=== PATIENT | male | born 1955 | race Two or more races ===

== ENCOUNTER 2022-02-17 16:17 | Inpatient (IN) | payer MEDICARE, OTHER ==
[~2022-02-17] VITALS: Ht 172.7 cm; Wt 92.5 kg
[2022-02-17] MEDS ORDERED: ACET-868 PO (16:33)
[2022-02-17] MEDS ORDERED: AMLO-212 PO (16:33)
[2022-02-17] MEDS ORDERED: MINE7OIN RIGHTEYE (16:33)
[2022-02-17] MEDS ORDERED: FURO-145 PO (16:33)
[2022-02-17] MEDS ORDERED: NA P133E RC (16:33)
[2022-02-17] MEDS ORDERED: BISA10SU11 RC (16:33)
[2022-02-17] MEDS ORDERED: MAGN400O6 PO (16:33)
[2022-02-17] MEDS ORDERED: CHOL100043 PO (16:33)
[2022-02-17] MEDS ORDERED: ATOR40TA PO (16:33)
[2022-02-17] MEDS ORDERED: ASPI-1169 PO (16:33)
[2022-02-17] MEDS ORDERED: OXCA150T5 PO (16:33)
[2022-02-17] MEDS ORDERED: SPIR25TA PO (16:33)
[2022-02-17] MEDS ORDERED: BENA20TA9 PO (16:33)
[2022-02-17] MEDS ORDERED: POLY15DR40 EACHEYE (16:33)
--- NOTE | 2022-02-17 16:49 | NUR ---
TECH AT BEDSIDE FOR EKG
--- NOTE | 2022-02-17 16:53 | NUR ---
PHLEB AT BEDSIDE FOR BLOOD DRAW
--- NOTE | 2022-02-17 16:58 | NUR ---
COVID SWAB COLLECTED AND SENT TO LAB
[2022-02-17 17:09] LABS: BASOPHILS % (AUTO) 0.6 % (0.0-2.0); EOSINOPHILS % (AUTO) 4.8 % (0.0-6.0); HEMATOCRIT 41 % (39-51); HEMOGLOBIN 13.8 g/dL (13.5-17.5); LYMPHOCYTES # (AUTO) 1.7 K/uL (0.8-4.8); LYMPHOCYTES % (AUTO) 23.7 % (20.0-44.0); MEAN CORPUSCULAR HGB CONC 34 g/dl (31.0-36.0); MEAN CORPUSCULAR VOLUME 92 fL (80-96); MONOCYTES # (AUTO) 0.7 K/uL (0.1-1.30); MONOCYTES % (AUTO) 9.7 % (2.0-12.0); NEUTROPHILS # (AUTO) 4.4 K/uL (1.8-8.9); NEUTROPHILS % (AUTO) 61.2 % (43.0-81.0); PLATELET COUNT (AUTO) 289 K/uL (150-450); WHITE BLOOD COUNT (AUTO) 7.2 K/uL (4.3-11.0)
--- NOTE | 2022-02-17 17:14 | NUR ---
URINE SAMPLE COLLECTED AND SENT TO LAB
[2022-02-17 17:24] LABS: CARBON DIOXIDE 29 mmol/L (21-32); CHLORIDE 102 mmol/L (98-107); CREATININE 1.3 mg/dL (0.6-1.3); GLUCOSE 117 mg/dL (74-106); POTASSIUM 3.8 mmol/L (3.5-5.1); SODIUM SERUM 136 mmol/L (136-145); UREA NITROGEN, BLOOD 19 mg/dL (7-18)
[2022-02-17 17:30] LABS: ALANINE AMINOTRANSFERASE 35 U/L (12-78); ALBUMIN 3.6 g/dL (3.4-5.0); ALCOHOL, BLOOD < 3 mg/dL (0-0); ALKALINE PHOSPHATASE 120 U/L (46-116); ASPARTATE AMINOTRANSFERASE 23 U/L (15-37); BILIRUBIN,DIRECT 0.1 mg/dL (0.0-0.2); BILIRUBIN,TOTAL 0.3 mg/dL (0.2-1.0); TOTAL PROTEIN, SERUM 7.6 g/dL (6.4-8.2)
[2022-02-17 17:36] LABS: ACETAMINOPHEN 0 ug/ml (10-30)
[2022-02-17 19:09] LABS: BILIRUBIN,URINE NEGATIVE (NEGATIVE); COLOR,URINE YELLOW (YELLOW); LEUKOCYTE ESTERASE ,URINE NEGATIVE (NEGATIVE); NITRITE, URINE NEGATIVE (NEGATIVE); PH,URINE 6.5 (5.0-8.0); PROTEIN,URINE NEGATIVE (NEGATIVE); UGLUCOSE NEGATIVE (NEGATIVE); UROBILINOGEN,URINE 0.2 EU/dL (0.2)
--- NOTE | 2022-02-17 19:37 | NUR ---
CALLED DANELLE EMERY A MSG TO CALL BACK.
--- NOTE | 2022-02-17 21:52 | NUR ---
BED 212-B
--- NOTE | 2022-02-17 22:47 | NUR ---
GAVE REPORT TO ASIM PARKER FOR KAUSHIK
[2022-02-17 23:10] VITALS: BP 154/92
--- NOTE | 2022-02-17 23:10 | NUR ---
RN NOTE ADMITTED A 66-Y/O, MALE, FROM [facility], INITIALLY PT CAME FROM [facility]. ADMITTED ON A 5150 HOLD FOR GD. PER HOLD, PATIENT ADMITTED DUE TO CONFUSION AND INCREASED PARANOIA. PT APPEARED CONFUSED, HE KEPT REPEATING HE WAS HERE TO BE EVALUATED AND DOES NOT KNOW WHY HE SHOULD STAY. UPON FACE TO FACE EVALUATION, PATIENT IS ALERT AND ORIENTED X1-2, ANXIOUS, CONFUSED, BLUNTED AFFECT, DISHEVELED AND SLURRED SPEECH. SKIN ASSESSMENT DONE. PT. UNABLE TO SIGN ADMISSION PAPERWORK DUE TO CONFUSION. ALL BELONGINGS WERE SCREENED FOR CONTRABAND. PATIENT'S RIGHTS WERE DISCUSSED AND BOOKLET WAS GIVEN. CONTACTED DR. BOBBY AND HOSPITALIST EDEL LUX AND INFORMED THEM OF THE ADMISSION. BED IN LOW AND LOCKED POSITION. SAFETY PRECAUTIONS MAINTAINED. WILL CONTINUE TO MONITOR Q15 MINS FOR MOOD, SAFETY AND BEHAVIOR.
[2022-02-18] MEDS ORDERED: ACETAMINOPHEN 325 MG TABLET PO PRN ×2
[2022-02-18] MEDS ORDERED: BISACODYL SUPP (10 MG) 10 MG/SUPP.RECT SUPP.RECT RC PRN
[2022-02-18] MEDS ORDERED: MAG HYDROX/AL HYDROX/SIMETH 30 ML UDC PO PRN
[2022-02-18] MEDS ORDERED: NA PHOS,M-B/NA PHOS,DI-BA 1 EA ENEMA RC PRN
[2022-02-18] MEDS ORDERED: POLYVINYL ALCOHOL 15 ML BOTTLE EACHEYE PRN
[2022-02-18] MEDS ORDERED: LORAZEPAM 0.5 MG TABLET PO PRN
[2022-02-18] MEDS ORDERED: ZOLPIDEM TARTRATE 5 MG TABLET PO PRN
[2022-02-18] MEDS ORDERED: BLOOD SUGAR DIAGNOSTIC 1 EACH STRIP IN ONE
[2022-02-18] MEDS ORDERED: MAGNESIUM HYDROXIDE 30 ML UDC PO PRN
--- NOTE | 2022-02-18 00:15 | NUR ---
RN NOTE EPIC ON-CALL POKE IN JOSE J NOTIFIED OF PATIENT'S RIGHT EYE REDNESS. PT DENIES ANY PAIN/DISCOMFORT, NO DISCHARGES NOTED WITH NO NEW ORDER AT THIS TIME. WILL ENDORSE TO AM SHIFT.
[2022-02-18] MEDS: ATORVASTATIN 40 MG TABLET PO SCH ×2 (00:46→22:11)
[2022-02-18 07:13] LABS: ALBUMIN 3.5 g/dL (3.4-5.0); BILIRUBIN,TOTAL 0.4 mg/dL (0.2-1.0); CREATININE 1.1 mg/dL (0.6-1.3); POTASSIUM 4.4 mmol/L (3.5-5.1); TOTAL PROTEIN, SERUM 7.7 g/dL (6.4-8.2)
[2022-02-18 07:23] LABS: CHOLESTEROL 107 mg/dL (<200); HDL CHOLESTEROL 44 mg/dL (40-60); LDL 49 mg/dL (0-99); TRIGLYCERIDES 126 mg/dL (30-150)
[2022-02-18 08:00] VITALS: BP 157/78
[2022-02-18] MEDS: OXCARBAZEPINE 150 MG TABLET PO SCH (08:41)
[2022-02-18] MEDS: ASPIRIN 81 MG TAB.CHEW PO SCH (08:41)
[2022-02-18] MEDS: SPIRONOLACTONE 25 MG TABLET PO SCH ×2 (08:41→17:33)
[2022-02-18] MEDS: CHOLECALCIFEROL (VITAMIN D 3) 400 UNIT TABLET PO SCH (08:41)
[2022-02-18] MEDS: FUROSEMIDE 20 MG TABLET PO SCH (08:41)
[2022-02-18] MEDS: AMLODIPINE BESYLATE 5 MG TABLET PO SCH (08:42)
--- NOTE | 2022-02-18 09:26 | NUR ---
LAURIE Initial Discharge Plan: Patient has been residing at [facility] located at [address] [place] [address]; ([phone]). [facility] who stated that pt is welcomed back. LAURIE will coordinate with the pt, family, and MD to help find appropriate placement.
--- NOTE | 2022-02-18 09:27 | NUR ---
LAURIE Clinical Note: Pt placed on a 5150 hold for GD. Pt was confused and paranoid at the facility. Patient has been residing at [facility] located at [address] [place] [address]; ([phone]). LAURIE contacted Helda admin from [facility] who stated that pt is welcomed back.
--- NOTE | 2022-02-18 09:29 | NUR ---
Treatment Plan: Pt appeared suspicious and refused to sign.
--- NOTE | 2022-02-18 09:44 | NUR ---
LAURIE Family Contact: LAURIE attempted to contact pt's sister Marlene ([phone]) to discuss treatment/discharge plan. She stated to this scientific technical writer that she is sick and won't be able to visit pt. She did want pt back to [facility] when pt is ready for dc. Addendum: 02/24/22 at 1201 by LAURIE ARROYO Correction name is Kathy
[2022-02-18] MEDS: ESCITALOPRAM OXALATE (10 MG) 10 MG TABLET PO SCH (11:00)
[2022-02-18 16:00] VITALS: BP 158/83
--- NOTE | 2022-02-18 18:45 | NUR ---
ms rn patient was stable the whole shift, patient was cooperative and compliant, denies pain the whole shift,all needs attended.
[2022-02-18 20:00] VITALS: BP 135/78
--- NOTE | 2022-02-18 20:15 | NUR ---
RN NOTES: PATIENT RESTING IN ROOM, NO S/SX OF ACUTE DISTRESS NOTED. PATIENT GUARDED, EASILY AGITATED, DISORGANIZED,GIVING INAPPROPRIATE ANSWER TO QUESTIONS, NEEDS FREQUENT REDIRECTION.ENCOURAGE TO VERBALIZED ANY FEELING OR CONCERN, SAFETY MEASURES IN PLACE. WILL CONTINUE TO MONITOR Q15MIN ROUNDS FOR SAFETY AND BEHAVIOR.
[2022-02-18] MEDS: QUETIAPINE FUMARATE 25 MG TABLET PO SCH (22:11)
[2022-02-18] MEDS: BENAZEPRIL HCL 20 MG TABLET PO SCH (22:12)
[2022-02-19 08:00] VITALS: BP 156/91
[2022-02-19] MEDS: CHOLECALCIFEROL (VITAMIN D 3) 400 UNIT TABLET PO SCH (09:01)
[2022-02-19] MEDS: FUROSEMIDE 20 MG TABLET PO SCH (09:01)
[2022-02-19] MEDS: SPIRONOLACTONE 25 MG TABLET PO SCH ×2 (09:01→16:06)
[2022-02-19] MEDS: OXCARBAZEPINE 150 MG TABLET PO SCH (09:01)
[2022-02-19] MEDS: ESCITALOPRAM OXALATE (10 MG) 10 MG TABLET PO SCH (09:01)
[2022-02-19] MEDS: ASPIRIN 81 MG TAB.CHEW PO SCH (09:01)
[2022-02-19] MEDS: AMLODIPINE BESYLATE 5 MG TABLET PO SCH (09:02)
[2022-02-19 16:00] VITALS: BP 125/82
--- NOTE | 2022-02-19 19:30 | NUR ---
GPS RN NOTE, RECEIVED PATIENT AWAKE AND IN BED, NO S/S OR COMPLAINTS OF PAIN AT THIS TIME. PATIENT IS DISPLAYING NO S/S OF APPARENT DISTRESS AT THIS TIME. PATIENT BREATHING IS UNLABORED WITH EQUAL RISE AND FALL OF THE CHEST. PATIENT IS ALERT AND ORIENTED X 1-2 ON ROOM AIR WITH A SPO2 97%. PATIENT IS COMPLIANT WITH MEDICATIONS, CALM, DISORGANIZED, POLITE, AND COOPERATIVE. PATIENT DENIES SUICIDAL AND HOMICIDAL IDEATIONS AT THIS TIME. PATIENT ASSISTED WITH TURNING AND REPOSITIONING Q2HR AND PRN FOR COMFORT AND CIRCULATION. PATIENT HAS NO NEEDS AT THIS TIME. PATIENT EDUCATED ON THE USE OF THE CALL CONROY. PATIENT BED SIDE RAILS UP X 2 FOR SAFETY. PATIENT BED IS LOCKED, LOW, WITH BED ALARM ON. WILL CONTINUE TO MONITOR THIS PATIENT Q15 MINUTES WITH THE HELP OF STAFF TO MAINTAIN SAFETY.
[2022-02-19] MEDS: ATORVASTATIN 40 MG TABLET PO SCH (21:37)
[2022-02-19] MEDS: QUETIAPINE FUMARATE 25 MG TABLET PO SCH (21:37)
[2022-02-19] MEDS: BENAZEPRIL HCL 20 MG TABLET PO SCH (21:38)
--- NOTE | 2022-02-20 07:52 | NUR ---
Dr. Morin cancelled the EEG order.
[2022-02-20 08:00] VITALS: BP 137/78
[2022-02-20] MEDS: OXCARBAZEPINE 150 MG TABLET PO SCH (08:04)
[2022-02-20] MEDS: FUROSEMIDE 20 MG TABLET PO SCH (08:04)
[2022-02-20] MEDS: SPIRONOLACTONE 25 MG TABLET PO SCH ×2 (08:04→16:37)
[2022-02-20] MEDS: ASPIRIN 81 MG TAB.CHEW PO SCH (08:04)
[2022-02-20] MEDS: CHOLECALCIFEROL (VITAMIN D 3) 400 UNIT TABLET PO SCH (08:04)
[2022-02-20] MEDS: ESCITALOPRAM OXALATE (10 MG) 10 MG TABLET PO SCH (08:04)
[2022-02-20] MEDS: AMLODIPINE BESYLATE 5 MG TABLET PO SCH (08:05)
[2022-02-20 16:00] VITALS: BP 136/70
--- NOTE | 2022-02-20 19:30 | NUR ---
GPS RN NOTE, RECEIVED PATIENT AWAKE AND IN BED, NO S/S OR COMPLAINTS OF PAIN AT THIS TIME. PATIENT IS DISPLAYING NO S/S OF APPARENT DISTRESS AT THIS TIME. PATIENT BREATHING IS UNLABORED WITH EQUAL RISE AND FALL OF THE CHEST. PATIENT IS ALERT AND ORIENTED X 1-2 ON ROOM AIR WITH A SPO2 93%. PATIENT IS COMPLIANT WITH MEDICATIONS, CALM, DISORGANIZED, POLITE, AND COOPERATIVE. PATIENT DENIES SUICIDAL AND HOMICIDAL IDEATIONS AT THIS TIME. PATIENT ASSISTED WITH TURNING AND REPOSITIONING Q2HR AND PRN FOR COMFORT AND CIRCULATION. PATIENT HAS NO NEEDS AT THIS TIME. PATIENT EDUCATED ON THE USE OF THE CALL CONROY. PATIENT BED SIDE RAILS UP X 2 FOR SAFETY. PATIENT BED IS LOCKED, LOW, WITH BED ALARM ON. WILL CONTINUE TO MONITOR THIS PATIENT Q15 MINUTES WITH THE HELP OF STAFF TO MAINTAIN SAFETY.
[2022-02-20 20:00] VITALS: BP 127/76
[2022-02-20] MEDS: MUPIROCIN OINT 2% 22 GM TUBE NS SCH (21:18)
[2022-02-20] MEDS: ATORVASTATIN 40 MG TABLET PO SCH (21:19)
[2022-02-20] MEDS: QUETIAPINE FUMARATE 25 MG TABLET PO SCH (21:19)
[2022-02-20] MEDS: BENAZEPRIL HCL 20 MG TABLET PO SCH (21:20)
[2022-02-21 08:00] VITALS: BP 117/70
[2022-02-21] MEDS: ASPIRIN 81 MG TAB.CHEW PO SCH (08:40)
[2022-02-21] MEDS: CHOLECALCIFEROL (VITAMIN D 3) 400 UNIT TABLET PO SCH (08:40)
[2022-02-21] MEDS: ESCITALOPRAM OXALATE (10 MG) 10 MG TABLET PO SCH (08:40)
[2022-02-21] MEDS: SPIRONOLACTONE 25 MG TABLET PO SCH ×2 (08:40→17:39)
[2022-02-21] MEDS: OXCARBAZEPINE 150 MG TABLET PO SCH (08:41)
[2022-02-21] MEDS: AMLODIPINE BESYLATE 5 MG TABLET PO SCH (08:41)
[2022-02-21] MEDS: FUROSEMIDE 20 MG TABLET PO SCH (08:41)
[2022-02-21] MEDS: MUPIROCIN OINT 2% 22 GM TUBE NS SCH ×2 (08:41→21:20)
[2022-02-21 16:00] VITALS: BP 125/70
[2022-02-21 20:13] VITALS: BP 118/76
[2022-02-21] MEDS: QUETIAPINE FUMARATE 25 MG TABLET PO SCH (21:21)
[2022-02-21] MEDS: BENAZEPRIL HCL 20 MG TABLET PO SCH (21:21)
[2022-02-21] MEDS: ATORVASTATIN 40 MG TABLET PO SCH (21:22)
[2022-02-22 08:00] VITALS: BP 115/71
[2022-02-22] MEDS: CHOLECALCIFEROL (VITAMIN D 3) 400 UNIT TABLET PO SCH (09:24)
[2022-02-22] MEDS: ASPIRIN 81 MG TAB.CHEW PO SCH (09:26)
[2022-02-22] MEDS: OXCARBAZEPINE 150 MG TABLET PO SCH (09:26)
[2022-02-22] MEDS: AMLODIPINE BESYLATE 5 MG TABLET PO SCH (09:26)
[2022-02-22] MEDS: SPIRONOLACTONE 25 MG TABLET PO SCH ×2 (09:26→17:29)
[2022-02-22] MEDS: ESCITALOPRAM OXALATE (10 MG) 10 MG TABLET PO SCH (09:26)
[2022-02-22] MEDS: FUROSEMIDE 20 MG TABLET PO SCH (09:26)
[2022-02-22] MEDS: MUPIROCIN OINT 2% 22 GM TUBE NS SCH ×2 (09:27→21:11)
[2022-02-22 16:00] VITALS: BP 125/78
[2022-02-22 19:37] VITALS: BP 115/73
[2022-02-22] MEDS: ATORVASTATIN 40 MG TABLET PO SCH (21:10)
[2022-02-22] MEDS: BENAZEPRIL HCL 20 MG TABLET PO SCH (21:10)
[2022-02-22] MEDS: QUETIAPINE FUMARATE 25 MG TABLET PO SCH (21:11)
[2022-02-23 08:00] VITALS: BP 137/70
[2022-02-23] MEDS: ASPIRIN 81 MG TAB.CHEW PO SCH (08:46)
[2022-02-23] MEDS: SPIRONOLACTONE 25 MG TABLET PO SCH ×2 (08:46→17:19)
[2022-02-23] MEDS: AMLODIPINE BESYLATE 5 MG TABLET PO SCH (08:47)
[2022-02-23] MEDS: OXCARBAZEPINE 150 MG TABLET PO SCH (08:47)
[2022-02-23] MEDS: FUROSEMIDE 20 MG TABLET PO SCH (08:47)
[2022-02-23] MEDS: CHOLECALCIFEROL (VITAMIN D 3) 400 UNIT TABLET PO SCH (08:47)
[2022-02-23] MEDS: ESCITALOPRAM OXALATE (10 MG) 10 MG TABLET PO SCH (08:48)
[2022-02-23] MEDS: MUPIROCIN OINT 2% 22 GM TUBE NS SCH ×2 (08:50→21:31)
[2022-02-23 16:00] VITALS: BP 136/77
[2022-02-23 19:26] VITALS: BP 131/71
[2022-02-23] MEDS: QUETIAPINE FUMARATE 25 MG TABLET PO SCH (21:29)
[2022-02-23] MEDS: ATORVASTATIN 40 MG TABLET PO SCH (21:29)
[2022-02-23] MEDS: BENAZEPRIL HCL 20 MG TABLET PO SCH (21:29)
[2022-02-24 08:00] VITALS: BP 145/74
[2022-02-24] MEDS: SPIRONOLACTONE 25 MG TABLET PO SCH ×2 (08:48→17:36)
[2022-02-24] MEDS: ESCITALOPRAM OXALATE (10 MG) 10 MG TABLET PO SCH (08:48)
[2022-02-24] MEDS: ASPIRIN 81 MG TAB.CHEW PO SCH (08:48)
[2022-02-24] MEDS: AMLODIPINE BESYLATE 5 MG TABLET PO SCH (08:49)
[2022-02-24] MEDS: OXCARBAZEPINE 150 MG TABLET PO SCH (08:49)
[2022-02-24] MEDS: CHOLECALCIFEROL (VITAMIN D 3) 400 UNIT TABLET PO SCH (08:49)
[2022-02-24] MEDS: MUPIROCIN OINT 2% 22 GM TUBE NS SCH ×2 (08:49→21:23)
[2022-02-24] MEDS: FUROSEMIDE 20 MG TABLET PO SCH (08:50)
--- NOTE | 2022-02-24 12:01 | NUR ---
Court Notification: LAURIE attempted to contact pt's ist Addendum: 02/24/22 at 1202 by LAURIE ARROYO LAURIE attempted to contact pt's sister Marlene ([phone]) and left a voicemail of [phone] hearing.
--- NOTE | 2022-02-24 12:02 | NUR ---
Court Hearing: Patient's court hearing for [id number] was today and it was upheld for GD.
--- NOTE | 2022-02-24 12:07 | NUR ---
LAURIE Family Contact: LAURIE contacted pt's sister Marlene ([phone]) and notified of pt returning back to [facility] 02/25. She was agreeable of this.
[2022-02-24 16:24] VITALS: BP 124/71
[2022-02-24 20:06] VITALS: BP 132/76
[2022-02-24] MEDS: QUETIAPINE FUMARATE 25 MG TABLET PO SCH (21:20)
[2022-02-24] MEDS: BENAZEPRIL HCL 20 MG TABLET PO SCH (21:22)
[2022-02-24] MEDS: ATORVASTATIN 40 MG TABLET PO SCH (21:22)
[2022-02-25 08:00] VITALS: BP 114/62
--- NOTE | 2022-02-25 08:05 | NUR ---
LAURIE Discharge Note: Patient will return back to [facility] located at [address] [place] [address]; ([phone]). Please arrange transportation at 1PM. LAURIE contacted [facility] and spoke with [facility] who stated pt is welcomed back. Pts sister Marlene ([phone]) is aware and agreeable of discharge. Pt has no other supportive contact. Pt is alert and oriented x3. Pt denies suicidal or homicidal ideation. Pt denies visual/auditory hallucinations. Patient will follow-up at the facility with Dr. Luz (psychiatrist) [id number] [place] [id number]; ([phone]). Patient will follow up with (Psychiatrist) Dr. Valdez at [address] [place] [address] ([phone]). Patient presents with euthymic mood and congruent affect.
[2022-02-25 09:28] VITALS: BP 114/62
[2022-02-25] MEDS: ASPIRIN 81 MG TAB.CHEW PO SCH (09:28)
[2022-02-25] MEDS: FUROSEMIDE 20 MG TABLET PO SCH (09:28)
[2022-02-25] MEDS: ESCITALOPRAM OXALATE (10 MG) 10 MG TABLET PO SCH (09:28)
[2022-02-25] MEDS: SPIRONOLACTONE 25 MG TABLET PO SCH (09:28)
[2022-02-25] MEDS: AMLODIPINE BESYLATE 5 MG TABLET PO SCH (09:28)
[2022-02-25] MEDS: MUPIROCIN OINT 2% 22 GM TUBE NS SCH (09:28)
[2022-02-25] MEDS: CHOLECALCIFEROL (VITAMIN D 3) 400 UNIT TABLET PO SCH (09:29)
[2022-02-25] MEDS: OXCARBAZEPINE 150 MG TABLET PO SCH (09:29)
--- NOTE | 2022-02-25 10:00 | NUR ---
Dr. Luz gave an order to D/C hold and D/C to [facility] and to follow up with psych and medical doctors. Psychiatrist reconciled meds to continue in the facility. Lissa Rascon NP made aware of the discharge and reconciled meds to continue in the facility.
--- NOTE | 2022-02-25 11:14 | NUR ---
Report given to Prince, right of way supervisor over the facility. Dr. Wright made aware of the discharge and CT was not done and said that's fine.
--- NOTE | 2022-02-25 13:31 | NUR ---
DISCHARGE NOTE Received order from Dr. Luz for discharge. Patient is A/o x 2, able to make needs known. On room air, breathing evenly and unlabored. No SOB or s/s of distress noted. Discharge instructions given to patient, discharge papers signed. Patient denies any SI/HI, also denies any pain or discomfort at this time. VS taken as follows: BP 150/77, HR 78, RR 19, Temp 97.6, SPO2 95% on RA. Patient left in stable condition with 2 merchandiser seasonal via ambulance.
== END 2022-02-25 13:30 | DRG 885 ==
LOC: ER 16:27 → GPS 22:36
PROVIDERS: ADMIT Psychiatry & Neurology Psychiatry; ATTEND Registered Nurse
DX: F33.3 Major depressive disorder, recurrent, severe with psychotic symptoms (principal); I69.351 Hemiplegia and hemiparesis following cerebral infarction affecting right dominant side; F03.92 Unspecified dementia, unspecified severity, with psychotic disturbance; F41.9 Anxiety disorder, unspecified; I10 Essential (primary) hypertension; E78.5 Hyperlipidemia, unspecified; Z88.1 Allergy status to other antibiotic agents; Z88.2 Allergy status to sulfonamides; Z79.82 Long term (current) use of aspirin; Z79.899 Other long term (current) drug therapy; Z73.6 Limitation of activities due to disability; E86.0 Dehydration; R79.89 Other specified abnormal findings of blood chemistry; R73.03 Prediabetes; Z99.3 Dependence on wheelchair; G40.909 Epilepsy, unspecified, not intractable, without status epilepticus
CPT/HCPCS: 36415; 80048-TC; 80053-TC; 80061-TC; 80076-TC; 82962-TC; 84443-TC; 85025-TC; 87081-TC; 97110-TC; 97530-TC; C9803; G0480

== ENCOUNTER 2022-04-28 15:45 | Inpatient (IN) | payer MEDICARE, OTHER ==
[~2022-04-28] VITALS: Ht 182.9 cm; Wt 90.7 kg
[~2022-04-28 15:45] MED LIST: ACET-868 PO; AMLO-212 PO; ASPI-1169 PO; ATOR40TA PO; BENA20TA9 PO; BISA10SU11 RC; CHOL100043 PO; FURO-145 PO; MAGN400O6 PO; MINE7OIN RIGHTEYE; NA P133E RC; OXCA150T5 PO; POLY15DR40 EACHEYE; SPIR25TA PO
--- NOTE | 2022-04-28 16:38 | NUR ---
dr jacinto at bedside for eval.
[2022-04-28 17:02] LABS: BASOPHILS % (AUTO) 0.4 % (0.0-2.0); EOSINOPHILS % (AUTO) 5.3 % (0.0-6.0); HEMATOCRIT 42 % (39-51); HEMOGLOBIN 13.7 g/dL (13.5-17.5); LYMPHOCYTES # (AUTO) 1.4 K/uL (0.8-4.8); MEAN CORPUSCULAR HGB CONC 33 g/dl (31.0-36.0); MEAN CORPUSCULAR VOLUME 94 fL (80-96); MONOCYTES # (AUTO) 0.7 K/uL (0.1-1.30); MONOCYTES % (AUTO) 9.3 % (2.0-12.0); NEUTROPHILS # (AUTO) 5.2 K/uL (1.8-8.9); PLATELET COUNT (AUTO) 291 K/uL (150-450); RED BLOOD CELL COUNT(AUTO) 4.47 MIL/uL (4.5-6.0); WHITE BLOOD COUNT (AUTO) 7.7 K/uL (4.3-11.0)
[2022-04-28] MEDS ORDERED: SPIR25TA PO (17:27)
[2022-04-28] MEDS ORDERED: QUET50TA PO (17:27)
[2022-04-28 17:48] LABS: ALANINE AMINOTRANSFERASE 26 U/L (12-78); ALBUMIN 3.5 g/dL (3.4-5.0); ALCOHOL, BLOOD < 3 mg/dL (0-0); ALKALINE PHOSPHATASE 107 U/L (46-116); ASPARTATE AMINOTRANSFERASE 21 U/L (15-37); BILIRUBIN,DIRECT 0.1 mg/dL (0.0-0.2); BILIRUBIN,TOTAL 0.3 mg/dL (0.2-1.0); CALCIUM, SERUM 9.1 mg/dL (8.5-10.1); CARBON DIOXIDE 30 mmol/L (21-32); CHLORIDE 103 mmol/L (98-107); CREATININE 1.3 mg/dL (0.6-1.3); GLUCOSE 118 mg/dL (74-106); POTASSIUM 4.3 mmol/L (3.5-5.1); SODIUM SERUM 139 mmol/L (136-145); TOTAL PROTEIN, SERUM 7.3 g/dL (6.4-8.2); UREA NITROGEN, BLOOD 21 mg/dL (7-18)
[2022-04-28 18:07] LABS: BILIRUBIN,URINE NEGATIVE (NEGATIVE); COLOR,URINE YELLOW (YELLOW); LEUKOCYTE ESTERASE ,URINE NEGATIVE (NEGATIVE); NITRITE, URINE NEGATIVE (NEGATIVE); PROTEIN,URINE NEGATIVE (NEGATIVE); UGLUCOSE NEGATIVE (NEGATIVE); UROBILINOGEN,URINE 0.2 EU/dL (0.2)
--- NOTE | 2022-04-28 18:36 | NUR ---
COVID SWAB COLLECTED AND SENT TO LAB
--- NOTE | 2022-04-28 20:37 | NUR ---
RUPERT PAGED LEFT VOICEMAIL
--- NOTE | 2022-04-28 20:44 | NUR ---
CALLED [facility] CRISIS TEAM FOR EVAL
[2022-04-28 20:54] LABS: BACTERIA,URINE None seen /HPF (None Seen); SQUAMOUS EPITHELIAL CELL,UR 0-2 /HPF (None Seen); WBC,URINE 0-2 /HPF (0-3)
--- NOTE | 2022-04-28 23:30 | NUR ---
ALFREDO WISDOMFT CRISIS TEAM AT PT'S BEDSIDE FOR EVAL
--- NOTE | 2022-04-28 23:45 | NUR ---
Stanislav salmeron in [place] - 04/29/22 at 0006 by KIM RIKA CHRISTENSEN CRISIS TEAM AT PT'S BEDSIDE FOR EVAL
[2022-04-29] MEDS ORDERED: MAGNESIUM HYDROXIDE 30 ML UDC PO PRN ×2 (01:00→03:00)
--- NOTE | 2022-04-29 01:33 | NUR ---
REPORT GIVEN TO PAYAL NELSON RN FOR KAUSHIK
--- NOTE | 2022-04-29 02:46 | NUR ---
PT TRANSFERRED NO ACUTE DISTRESS NOTED.
[2022-04-29] MEDS ORDERED: MAG HYDROX/AL HYDROX/SIMETH 30 ML UDC PO PRN (03:00)
[2022-04-29] MEDS ORDERED: ZOLPIDEM TARTRATE 5 MG TABLET PO PRN (03:00)
[2022-04-29] MEDS ORDERED: ACETAMINOPHEN 325 MG TABLET PO PRN (03:00)
[2022-04-29] MEDS ORDERED: LORAZEPAM 0.5 MG TABLET PO PRN (03:00)
[2022-04-29] MEDS ORDERED: BLOOD SUGAR DIAGNOSTIC 1 EACH STRIP IN ONE (03:00)
[2022-04-29] MEDS: POLYVINYL ALCOHOL 15 ML BOTTLE EACHEYE SCH ×5 (05:00→21:15)
--- NOTE | 2022-04-29 06:57 | NUR ---
This patient arrived on the floor from the emergency department. He is alert and orientedX3. He denies knowledge of why he was sent to the hospital. It was reported that he was delusional, believing increasingly that someone was trying to kill him. Currently, he is calm, able to follow directions, cooperative. He denies suicide ideation and/or depression. No s/s of distress is noted at this time, no behavioral concerns were presented throughout the night.
[2022-04-29 08:00] VITALS: BP 166/95
[2022-04-29] MEDS: CHOLECALCIFEROL 1,000 UNIT TABLET (VIT D3) PO SCH (08:49)
[2022-04-29] MEDS: SPIRONOLACTONE 25 MG TABLET PO SCH (08:49)
[2022-04-29] MEDS: ASPIRIN 81 MG TAB.CHEW PO SCH (08:49)
[2022-04-29] MEDS: AMLODIPINE BESYLATE 5 MG TABLET PO SCH (08:49)
[2022-04-29] MEDS: FUROSEMIDE 20 MG TABLET PO SCH (08:49)
[2022-04-29 08:51] LABS: CREATININE 1.1 mg/dL (0.6-1.3)
--- NOTE | 2022-04-29 09:53 | NUR ---
LAURIE Initial Discharge Note: Patient has been residing at [facility] located at [address] [place] [address]; ([phone]). LAURIE contacted Jeremy from [facility] who stated pt is welcomed back. LAURIE will coordinate with the pt, family, and MD to help find appropriate placement.
--- NOTE | 2022-04-29 09:54 | NUR ---
Treatment Plan: Pt refused to sign treatment and was suspicious.
--- NOTE | 2022-04-29 09:54 | NUR ---
LAURIE Clinical Note: Pt placed on a 5150 hold for danger to self. Pt placed on a hold due to pt being delusional at his facility assuming that someone is going to kill him. Patient has been residing at [facility] located at [address] [place] [address]; ([phone]). LAURIE contacted Helda admin from [facility] who stated pt is welcomed back.
--- NOTE | 2022-04-29 11:27 | NUR ---
LAURIE Family Contact: SW left a voicemail for pt's sister Marlene ([phone]) and left a detailed voicemail of pt's admission, discharge plan, and treatment plan.
--- NOTE | 2022-04-29 13:30 | NUR ---
RN-NOTES SUSIE CUEVAS SEEN THE PATIENT AND PATIENT'S POLST AND STATED THAT PATIENT WAS DNR.
[2022-04-29] MEDS: OXCARBAZEPINE 150 MG TABLET PO SCH ×2 (14:10→17:15)
[2022-04-29 16:00] VITALS: BP 150/91
--- NOTE | 2022-04-29 18:29 | NUR ---
RN-NOTES PATIENT LYING IN BED AWAKE,A/X3,GUARDED,CALM NO ACUTE DISTRESS NOTED. COMPLIANT WITH MEDICATIONS.NEEDS MODERATE ASSIST WITH ADL'S. ALL NEEDS ATTENDED AND ANTICIPATED. WILL CONT. MONITORING FOR SAFETY AND BEHAVIOR.WILL ENDORSE TO INCOMING NURSE FOR THE CONTINUITY OF CARE.
--- NOTE | 2022-04-29 20:30 | NUR ---
RN NOTES: RECEIVED PATIENT LYING IN BED AWAKE,DISORGNIZED,DELUSIONAL , EASILY AGITATED GUARDED, NO ACUTE DISTRESS NOTED. COMPLIANT WITH MEDICATIONS.ENCOURAGED TO VERBALIZED ANY FEELING OR CONCERN. ALL NEEDS ATTENDED AND ANTICIPATED. WILL CONTINUE TO. MONITORING FOR SAFETY AND BEHAVIOR.
[2022-04-29 20:54] VITALS: BP 134/74
[2022-04-29] MEDS: QUETIAPINE FUMARATE 25 MG TABLET PO SCH (21:15)
[2022-04-29] MEDS: ATORVASTATIN 40 MG TABLET PO SCH (21:15)
[2022-04-29] MEDS: BENAZEPRIL HCL 20 MG TABLET PO SCH (21:16)
[2022-04-30] MEDS: POLYVINYL ALCOHOL 15 ML BOTTLE EACHEYE SCH ×6 (01:04→20:46)
[2022-04-30 08:00] VITALS: BP 150/92
[2022-04-30] MEDS: SPIRONOLACTONE 25 MG TABLET PO SCH (08:27)
[2022-04-30] MEDS: FUROSEMIDE 20 MG TABLET PO SCH (08:27)
[2022-04-30] MEDS: ESCITALOPRAM OXALATE (10 MG) 10 MG TABLET PO SCH (08:27)
[2022-04-30] MEDS: CHOLECALCIFEROL 1,000 UNIT TABLET (VIT D3) PO SCH (08:27)
[2022-04-30] MEDS: ASPIRIN 81 MG TAB.CHEW PO SCH (08:27)
[2022-04-30] MEDS: OXCARBAZEPINE 150 MG TABLET PO SCH ×2 (08:27→17:07)
[2022-04-30] MEDS: AMLODIPINE BESYLATE 5 MG TABLET PO SCH (08:27)
[2022-04-30 16:00] VITALS: BP 147/89
--- NOTE | 2022-04-30 19:21 | NUR ---
RN-NOTES PATIENT LYING IN BED AWAKE,A/X3,GUARDED,CALM NO ACUTE DISTRESS NOTED. COMPLIANT WITH MEDICATIONS. ABLE TO MAKE NEEDS KNOWN TO THE STAFF.NEEDS MODERATE ASSIST WITH ADL'S. GOOD TREMAYNE CARE RENDERED.ALL NEEDS ATTENDED AND ANTICIPATED. WILL CONT. MONITORING FOR SAFETY AND BEHAVIOR.WILL ENDORSE TO INCOMING NURSE FOR THE CONTINUITY OF CARE.
[2022-04-30 20:00] VITALS: BP 140/85
--- NOTE | 2022-04-30 20:24 | NUR ---
RN NOTES: PATIENT RESTING IN BED AWAKE,ALERT ,DISORGNIZED,DELUSIONAL ,PARANOID EASILY AGITATED GUARDED, NO ACUTE DISTRESS NOTED. COMPLIANT WITH MEDICATIONS.ENCOURAGED TO VERBALIZED ANY FEELING OR CONCERN. ALL NEEDS ATTENDED AND ANTICIPATED. WILL CONTINUE TO. MONITORING FOR SAFETY AND BEHAVIOR.
[2022-04-30] MEDS: ATORVASTATIN 40 MG TABLET PO SCH (21:05)
[2022-04-30] MEDS: QUETIAPINE FUMARATE 25 MG TABLET PO SCH (21:06)
[2022-04-30] MEDS: BENAZEPRIL HCL 20 MG TABLET PO SCH (21:06)
[2022-05-01] MEDS: POLYVINYL ALCOHOL 15 ML BOTTLE EACHEYE SCH ×6 (01:49→20:15)
[2022-05-01 08:00] VITALS: BP 120/93
[2022-05-01] MEDS: ASPIRIN 81 MG TAB.CHEW PO SCH (08:25)
[2022-05-01] MEDS: CHOLECALCIFEROL 1,000 UNIT TABLET (VIT D3) PO SCH (08:26)
[2022-05-01] MEDS: FUROSEMIDE 20 MG TABLET PO SCH (08:26)
[2022-05-01] MEDS: SPIRONOLACTONE 25 MG TABLET PO SCH (08:26)
[2022-05-01] MEDS: ESCITALOPRAM OXALATE (10 MG) 10 MG TABLET PO SCH (08:26)
[2022-05-01] MEDS: AMLODIPINE BESYLATE 5 MG TABLET PO SCH (08:26)
[2022-05-01] MEDS: OXCARBAZEPINE 150 MG TABLET PO SCH ×2 (08:26→16:21)
[2022-05-01 16:13] VITALS: BP 135/91
--- NOTE | 2022-05-01 18:43 | NUR ---
RN-NOTES PATIENT LYING IN BED AWAKE,A/X3,GUARDED,CALM COOPERATIVE WITH STAFF NO BEHAVIORAL ISSUES NOTED THIS SHIFT. NO ACUTE DISTRESS NOTED. COMPLIANT WITH MEDICATIONS. ABLE TO MAKE NEEDS KNOWN TO THE STAFF.NEEDS MODERATE ASSIST WITH ADL'S. ABLE TO URINAL,GOOD TREMAYNE CARE RENDERED.ALL NEEDS ATTENDED AND ANTICIPATED. WILL CONT. MONITORING FOR SAFETY AND BEHAVIOR.WILL ENDORSE TO INCOMING NURSE FOR THE CONTINUITY OF CARE.
[2022-05-01 20:50] VITALS: BP 145/77
[2022-05-01] MEDS: BENAZEPRIL HCL 20 MG TABLET PO SCH (21:04)
[2022-05-01] MEDS: ATORVASTATIN 40 MG TABLET PO SCH (21:05)
[2022-05-01] MEDS: QUETIAPINE FUMARATE 25 MG TABLET PO SCH (21:05)
[2022-05-01 22:00] VITALS: BP 130/72
[2022-05-02] MEDS: POLYVINYL ALCOHOL 15 ML BOTTLE EACHEYE SCH ×6 (01:00→21:24)
--- NOTE | 2022-05-02 05:28 | NUR ---
RN NOTES: PATIENT RESTING IN BED ,DISORGNIZED,DELUSIONAL ,PARANOID EASILY AGITATED GUARDED, NO ACUTE DISTRESS NOTED. COMPLIANT WITH MEDICATIONS.ENCOURAGED TO VERBALIZED ANY FEELING OR CONCERN. ALL NEEDS ATTENDED AND ANTICIPATED. WILL CONTINUE TO. MONITORING FOR SAFETY AND BEHAVIOR.
[2022-05-02 08:00] VITALS: BP 124/93
[2022-05-02] MEDS: OXCARBAZEPINE 150 MG TABLET PO SCH ×2 (09:36→16:54)
[2022-05-02] MEDS: SPIRONOLACTONE 25 MG TABLET PO SCH (09:36)
[2022-05-02] MEDS: ASPIRIN 81 MG TAB.CHEW PO SCH (09:36)
[2022-05-02] MEDS: CHOLECALCIFEROL 1,000 UNIT TABLET (VIT D3) PO SCH (09:36)
[2022-05-02] MEDS: FUROSEMIDE 20 MG TABLET PO SCH (09:36)
[2022-05-02] MEDS: ESCITALOPRAM OXALATE (10 MG) 10 MG TABLET PO SCH (09:36)
[2022-05-02] MEDS: AMLODIPINE BESYLATE 5 MG TABLET PO SCH (09:36)
[2022-05-02 16:00] VITALS: BP 143/88
[2022-05-02 20:28] VITALS: BP 126/86
[2022-05-02] MEDS: BENAZEPRIL HCL 20 MG TABLET PO SCH (21:24)
[2022-05-02] MEDS: QUETIAPINE FUMARATE 25 MG TABLET PO SCH (21:24)
[2022-05-02] MEDS: ATORVASTATIN 40 MG TABLET PO SCH (21:24)
[2022-05-03] MEDS: POLYVINYL ALCOHOL 15 ML BOTTLE EACHEYE SCH ×6 (01:44→20:54)
[2022-05-03 08:00] VITALS: BP 122/72
[2022-05-03] MEDS: ESCITALOPRAM OXALATE (10 MG) 10 MG TABLET PO SCH (08:23)
[2022-05-03] MEDS: ASPIRIN 81 MG TAB.CHEW PO SCH (08:23)
[2022-05-03] MEDS: OXCARBAZEPINE 150 MG TABLET PO SCH ×2 (08:24→16:54)
[2022-05-03] MEDS: SPIRONOLACTONE 25 MG TABLET PO SCH (08:24)
[2022-05-03] MEDS: CHOLECALCIFEROL 1,000 UNIT TABLET (VIT D3) PO SCH (08:24)
[2022-05-03] MEDS: FUROSEMIDE 20 MG TABLET PO SCH (08:24)
[2022-05-03] MEDS: AMLODIPINE BESYLATE 5 MG TABLET PO SCH (08:24)
[2022-05-03 16:00] VITALS: BP 119/73
[2022-05-03 20:00] VITALS: BP 120/64
[2022-05-03] MEDS: ATORVASTATIN 40 MG TABLET PO SCH (21:08)
[2022-05-03] MEDS: QUETIAPINE FUMARATE 25 MG TABLET PO SCH (21:08)
[2022-05-03] MEDS: BENAZEPRIL HCL 20 MG TABLET PO SCH (21:10)
[2022-05-04] MEDS: POLYVINYL ALCOHOL 15 ML BOTTLE EACHEYE SCH ×6 (01:36→20:12)
--- NOTE | 2022-05-04 07:30 | NUR ---
GPS RN NOTE RECEIVED PT ASLEEP IN BED, EASILY AROUSED. PT IS A/OX3, ABLE TO MAKE NEEDS KNOWN. ON ROOM AIR, TOLERATING WELL. NO SOB NOTED. NOT IN ANY SIGN OF RESPIRATORY DISTRESS. SAFETY MEASURES IN PLACE: BED IN LOWEST AND LOCKED POSITION, SIDE RAILS UPX2, BED ALARM ON, AND CALL LIGHT WITHIN REACH. WILL CONTINUE TO MONITOR PT.
[2022-05-04 08:00] VITALS: BP 135/67
[2022-05-04] MEDS: CHOLECALCIFEROL 1,000 UNIT TABLET (VIT D3) PO SCH (09:07)
[2022-05-04] MEDS: SPIRONOLACTONE 25 MG TABLET PO SCH (09:07)
[2022-05-04] MEDS: ASPIRIN 81 MG TAB.CHEW PO SCH (09:07)
[2022-05-04] MEDS: AMLODIPINE BESYLATE 5 MG TABLET PO SCH (09:07)
[2022-05-04] MEDS: FUROSEMIDE 20 MG TABLET PO SCH (09:07)
[2022-05-04] MEDS: ESCITALOPRAM OXALATE (10 MG) 10 MG TABLET PO SCH (09:07)
[2022-05-04] MEDS: OXCARBAZEPINE 150 MG TABLET PO SCH ×2 (09:07→17:13)
[2022-05-04 16:00] VITALS: BP 141/77
[2022-05-04 20:10] VITALS: BP 141/69
[2022-05-04] MEDS: ATORVASTATIN 40 MG TABLET PO SCH (21:05)
[2022-05-04] MEDS: QUETIAPINE FUMARATE 25 MG TABLET PO SCH (21:05)
[2022-05-04] MEDS: BENAZEPRIL HCL 20 MG TABLET PO SCH (21:06)
[2022-05-05] MEDS: POLYVINYL ALCOHOL 15 ML BOTTLE EACHEYE SCH ×6 (01:30→21:16)
[2022-05-05 08:00] VITALS: BP 140/76
[2022-05-05] MEDS: FUROSEMIDE 20 MG TABLET PO SCH (08:40)
[2022-05-05] MEDS: ASPIRIN 81 MG TAB.CHEW PO SCH (08:40)
[2022-05-05] MEDS: OXCARBAZEPINE 150 MG TABLET PO SCH ×2 (08:40→16:24)
[2022-05-05] MEDS: CHOLECALCIFEROL 1,000 UNIT TABLET (VIT D3) PO SCH (08:41)
[2022-05-05] MEDS: ESCITALOPRAM OXALATE (10 MG) 10 MG TABLET PO SCH (08:41)
[2022-05-05] MEDS: AMLODIPINE BESYLATE 5 MG TABLET PO SCH (08:41)
[2022-05-05] MEDS: SPIRONOLACTONE 25 MG TABLET PO SCH (08:41)
--- NOTE | 2022-05-05 09:20 | NUR ---
RN-CO: Patient is compliant with medications. He has a calm demienor. Isolative and withdrwn but he read books. I encouraged him to allow us to shower him and he agreed. I will turn and repo him q 2 hrs and offer fluids.
--- NOTE | 2022-05-05 12:52 | NUR ---
Court Notification: SW contacted pt's sister Marlene ([phone]) and left a voicemail of pt's 1198 hearing.
--- NOTE | 2022-05-05 13:49 | NUR ---
Court Hearing: Patient's court hearing for 1970 was today and it was upheld for GD.
[2022-05-05 16:00] VITALS: BP 122/76
[2022-05-05 20:22] VITALS: BP 136/75
[2022-05-05] MEDS: QUETIAPINE FUMARATE 100 MG TABLET PO SCH (22:39)
[2022-05-05] MEDS: ATORVASTATIN 40 MG TABLET PO SCH (22:40)
[2022-05-05] MEDS: BENAZEPRIL HCL 20 MG TABLET PO SCH (22:40)
[2022-05-06] MEDS: POLYVINYL ALCOHOL 15 ML BOTTLE EACHEYE SCH ×6 (02:47→21:12)
[2022-05-06 08:00] VITALS: BP 136/75
[2022-05-06] MEDS: ASPIRIN 81 MG TAB.CHEW PO SCH (08:06)
[2022-05-06] MEDS: OXCARBAZEPINE 150 MG TABLET PO SCH ×2 (08:06→16:18)
[2022-05-06] MEDS: CHOLECALCIFEROL 1,000 UNIT TABLET (VIT D3) PO SCH (08:06)
[2022-05-06] MEDS: SPIRONOLACTONE 25 MG TABLET PO SCH (08:06)
[2022-05-06] MEDS: AMLODIPINE BESYLATE 5 MG TABLET PO SCH (08:06)
[2022-05-06] MEDS: ESCITALOPRAM OXALATE (10 MG) 10 MG TABLET PO SCH (08:07)
[2022-05-06] MEDS: FUROSEMIDE 20 MG TABLET PO SCH (08:07)
--- NOTE | 2022-05-06 09:15 | NUR ---
RN Notes: Received pt. awake in bed, pleasant upon approached. Ate 100% for breakfast, compliant on meds. Encouraged to verbalize feelings, motivated to attend group activity and encouraged to take shower. Needs attended and will continue to monitor for safety.
[2022-05-06 16:00] VITALS: BP 123/73
--- NOTE | 2022-05-06 19:30 | NUR ---
GPS RN NOTE, RECEIVED PATIENT AWAKE AND IN BED, NO S/S OR COMPLAINTS OF PAIN AT THIS TIME. PATIENT IS DISPLAYING NO S/S OF APPARENT DISTRESS AT THIS TIME. PATIENT BREATHING IS UNLABORED WITH EQUAL RISE AND FALL OF THE CHEST. PATIENT IS ALERT AND ORIENTED X 3 ON ROOM AIR WITH A SPO2 96%. PATIENT IS COMPLIANT WITH MEDICATIONS, PLEASANT, ANXIOUS, PARANOID, ISOLATIVE, AND COOPERATIVE. PATIENT DENIES SUICIDAL AND HOMICIDAL IDEATIONS AT THIS TIME. PATIENT ASSISTED WITH TURNING AND REPOSITIONING Q2HR AND PRN FOR COMFORT AND CIRCULATION. PATIENT HAS NO NEEDS AT THIS TIME. PATIENT EDUCATED ON THE USE OF THE CALL CONROY. PATIENT BED SIDE RAILS UP X 2 FOR SAFETY. PATIENT BED IS LOCKED AND LOW. WILL CONTINUE TO MONITOR THIS PATIENT Q15 MINUTES WITH THE HELP OF STAFF TO MAINTAIN SAFETY.
[2022-05-06 20:00] VITALS: BP 139/75
[2022-05-06] MEDS: QUETIAPINE FUMARATE 100 MG TABLET PO SCH (21:47)
[2022-05-06] MEDS: BENAZEPRIL HCL 20 MG TABLET PO SCH (21:47)
[2022-05-06] MEDS: ATORVASTATIN 40 MG TABLET PO SCH (21:47)
[2022-05-07] MEDS: POLYVINYL ALCOHOL 15 ML BOTTLE EACHEYE SCH ×6 (02:04→21:29)
[2022-05-07 08:00] VITALS: BP 124/68
[2022-05-07] MEDS: OXCARBAZEPINE 150 MG TABLET PO SCH ×2 (09:02→16:52)
[2022-05-07] MEDS: ASPIRIN 81 MG TAB.CHEW PO SCH (09:02)
[2022-05-07] MEDS: AMLODIPINE BESYLATE 5 MG TABLET PO SCH (09:02)
[2022-05-07] MEDS: CHOLECALCIFEROL 1,000 UNIT TABLET (VIT D3) PO SCH (09:02)
[2022-05-07] MEDS: ESCITALOPRAM OXALATE (10 MG) 10 MG TABLET PO SCH (09:03)
[2022-05-07] MEDS: FUROSEMIDE 20 MG TABLET PO SCH (09:03)
[2022-05-07] MEDS: SPIRONOLACTONE 25 MG TABLET PO SCH (09:03)
[2022-05-07 16:00] VITALS: BP 117/57
--- NOTE | 2022-05-07 19:30 | NUR ---
GPS RN NOTE, RECEIVED PATIENT AWAKE AND IN BED, NO S/S OR COMPLAINTS OF PAIN AT THIS TIME. PATIENT IS DISPLAYING NO S/S OF APPARENT DISTRESS AT THIS TIME. PATIENT BREATHING IS UNLABORED WITH EQUAL RISE AND FALL OF THE CHEST. PATIENT IS ALERT AND ORIENTED X 3 ON ROOM AIR WITH A SPO2 95%. PATIENT IS COMPLIANT WITH MEDICATIONS, PLEASANT, ANXIOUS, PARANOID, ISOLATIVE, AND COOPERATIVE. PATIENT DENIES SUICIDAL AND HOMICIDAL IDEATIONS AT THIS TIME. PATIENT ASSISTED WITH TURNING AND REPOSITIONING Q2HR AND PRN FOR COMFORT AND CIRCULATION. PATIENT HAS NO NEEDS AT THIS TIME. PATIENT EDUCATED ON THE USE OF THE CALL CONROY. PATIENT BED SIDE RAILS UP X 2 FOR SAFETY. PATIENT BED IS LOCKED AND LOW. WILL CONTINUE TO MONITOR THIS PATIENT Q15 MINUTES WITH THE HELP OF STAFF TO MAINTAIN SAFETY.
[2022-05-07 21:01] VITALS: BP 144/88
[2022-05-07] MEDS: BENAZEPRIL HCL 20 MG TABLET PO SCH (21:29)
[2022-05-07] MEDS: ATORVASTATIN 40 MG TABLET PO SCH (21:29)
[2022-05-07] MEDS: QUETIAPINE FUMARATE 100 MG TABLET PO SCH (21:29)
[2022-05-08] MEDS: POLYVINYL ALCOHOL 15 ML BOTTLE EACHEYE SCH ×6 (01:08→21:44)
[2022-05-08 08:00] VITALS: BP 132/77
[2022-05-08] MEDS: OXCARBAZEPINE 150 MG TABLET PO SCH ×2 (08:09→16:38)
[2022-05-08] MEDS: ESCITALOPRAM OXALATE (10 MG) 10 MG TABLET PO SCH (08:09)
[2022-05-08] MEDS: ASPIRIN 81 MG TAB.CHEW PO SCH (08:09)
[2022-05-08] MEDS: FUROSEMIDE 20 MG TABLET PO SCH (08:09)
[2022-05-08] MEDS: CHOLECALCIFEROL 1,000 UNIT TABLET (VIT D3) PO SCH (08:09)
[2022-05-08] MEDS: SPIRONOLACTONE 25 MG TABLET PO SCH (08:10)
[2022-05-08] MEDS: AMLODIPINE BESYLATE 5 MG TABLET PO SCH (08:10)
--- NOTE | 2022-05-08 09:15 | NUR ---
RN Notes: Received pt. awake in bed, polite and responsive to staffs. Ate 100% for breakfast and compliant on meds. Encouraged to verbalize feelings and encouraged to take shower. No distress and no agitation noted. Needs attended and will continue to monitor for safety.
[2022-05-08 16:00] VITALS: BP 145/73
[2022-05-08 20:54] VITALS: BP 149/71
[2022-05-08] MEDS: QUETIAPINE FUMARATE 100 MG TABLET PO SCH (21:44)
[2022-05-08] MEDS: ATORVASTATIN 40 MG TABLET PO SCH (21:44)
[2022-05-08] MEDS: BENAZEPRIL HCL 20 MG TABLET PO SCH (21:47)
[2022-05-09] MEDS: POLYVINYL ALCOHOL 15 ML BOTTLE EACHEYE SCH ×6 (01:30→21:30)
[2022-05-09 08:00] VITALS: BP 125/73
[2022-05-09] MEDS: OXCARBAZEPINE 150 MG TABLET PO SCH ×2 (08:15→16:54)
[2022-05-09] MEDS: ESCITALOPRAM OXALATE (10 MG) 10 MG TABLET PO SCH (08:15)
[2022-05-09] MEDS: CHOLECALCIFEROL 1,000 UNIT TABLET (VIT D3) PO SCH (08:15)
[2022-05-09] MEDS: ASPIRIN 81 MG TAB.CHEW PO SCH (08:15)
[2022-05-09] MEDS: FUROSEMIDE 20 MG TABLET PO SCH (08:16)
[2022-05-09] MEDS: AMLODIPINE BESYLATE 5 MG TABLET PO SCH (08:16)
[2022-05-09] MEDS: SPIRONOLACTONE 25 MG TABLET PO SCH (08:16)
[2022-05-09 16:00] VITALS: BP 125/73
[2022-05-09 20:50] VITALS: BP 144/81
[2022-05-09] MEDS: ATORVASTATIN 40 MG TABLET PO SCH (21:31)
[2022-05-09] MEDS: BENAZEPRIL HCL 20 MG TABLET PO SCH (21:32)
[2022-05-09] MEDS ORDERED: QUETIAPINE FUMARATE 100 MG TABLET PO SCH (22:00)
[2022-05-10] MEDS: POLYVINYL ALCOHOL 15 ML BOTTLE EACHEYE SCH ×6 (01:15→21:30)
[2022-05-10 08:00] VITALS: BP 100/59
[2022-05-10] MEDS: AMLODIPINE BESYLATE 5 MG TABLET PO SCH (08:37)
[2022-05-10] MEDS: FUROSEMIDE 20 MG TABLET PO SCH (08:37)
[2022-05-10] MEDS: ASPIRIN 81 MG TAB.CHEW PO SCH (08:38)
[2022-05-10] MEDS: CHOLECALCIFEROL 1,000 UNIT TABLET (VIT D3) PO SCH (08:38)
[2022-05-10] MEDS: OXCARBAZEPINE 150 MG TABLET PO SCH ×2 (08:38→16:14)
[2022-05-10] MEDS: ESCITALOPRAM OXALATE (10 MG) 10 MG TABLET PO SCH (08:38)
[2022-05-10] MEDS: SPIRONOLACTONE 25 MG TABLET PO SCH (08:38)
[2022-05-10 16:00] VITALS: BP 153/82
[2022-05-10 20:10] VITALS: BP_SYST 119; BP_SYST 140; BP_DIAS 75; BP_DIAS 85
[2022-05-10] MEDS: QUETIAPINE FUMARATE 100 MG TABLET PO SCH (21:19)
[2022-05-10] MEDS: ATORVASTATIN 40 MG TABLET PO SCH (21:19)
[2022-05-10] MEDS: BENAZEPRIL HCL 20 MG TABLET PO SCH (21:20)
[2022-05-11] MEDS: POLYVINYL ALCOHOL 15 ML BOTTLE EACHEYE SCH ×6 (02:01→20:54)
[2022-05-11 08:00] VITALS: BP 122/64
[2022-05-11] MEDS: ASPIRIN 81 MG TAB.CHEW PO SCH (08:42)
[2022-05-11] MEDS: FUROSEMIDE 20 MG TABLET PO SCH (08:43)
[2022-05-11] MEDS: CHOLECALCIFEROL 1,000 UNIT TABLET (VIT D3) PO SCH (08:43)
[2022-05-11] MEDS: OXCARBAZEPINE 150 MG TABLET PO SCH ×2 (08:43→16:23)
[2022-05-11] MEDS: SPIRONOLACTONE 25 MG TABLET PO SCH (08:43)
[2022-05-11] MEDS: ESCITALOPRAM OXALATE (10 MG) 10 MG TABLET PO SCH (08:43)
[2022-05-11] MEDS: AMLODIPINE BESYLATE 5 MG TABLET PO SCH (08:44)
[2022-05-11 16:00] VITALS: BP 145/84
--- NOTE | 2022-05-11 17:40 | NUR ---
RN-NOTES PATIENT LYING IN BED AWAKE,A/OX3,GUARDED,CALM COOPERATIVE WITH STAFF NO BEHAVIORAL ISSUES NOTED THIS SHIFT. NO ACUTE DISTRESS NOTED. COMPLIANT WITH MEDICATIONS. ABLE TO MAKE NEEDS KNOWN TO THE STAFF.NEEDS MODERATE ASSIST WITH ADL'S. ABLE TO USE URINAL.ALL NEEDS ATTENDED AND ANTICIPATED. WILL CONT. MONITORING FOR SAFETY AND BEHAVIOR.WILL ENDORSE TO INCOMING NURSE FOR THE CONTINUITY OF CARE.
[2022-05-11 19:54] VITALS: BP 119/83
[2022-05-11] MEDS: BENAZEPRIL HCL 20 MG TABLET PO SCH (21:02)
[2022-05-11] MEDS: QUETIAPINE FUMARATE 100 MG TABLET PO SCH (21:02)
[2022-05-11] MEDS: ATORVASTATIN 40 MG TABLET PO SCH (21:02)
[2022-05-12] MEDS: POLYVINYL ALCOHOL 15 ML BOTTLE EACHEYE SCH ×3 (01:07→08:20)
[2022-05-12 08:00] VITALS: BP 127/60
--- NOTE | 2022-05-12 08:07 | NUR ---
LAURIE Discharge Note: Patient will return back to [facility] located at [address] [place] [address]; ([phone]). Please arrange transportation at 1PM. LAURIE contacted [facility] and spoke with [facility] who stated pt is welcomed back. SW left a voicemail to pts sister Marlene ([phone]). Pt has no other supportive contact. Pt is alert and oriented x3. Pt denies suicidal or homicidal ideation. Pt denies visual/auditory hallucinations. Patient will follow-up at the facility with Dr. Luz (psychiatrist) [address] [address]; ([phone]). Patient will follow up with (Psychiatrist) Dr. Valdez at [address] [place] [address] ([phone]). Patient presents with euthymic mood and congruent affect.
[2022-05-12 08:21] VITALS: BP 127/60
[2022-05-12] MEDS: AMLODIPINE BESYLATE 5 MG TABLET PO SCH (08:21)
[2022-05-12] MEDS: ASPIRIN 81 MG TAB.CHEW PO SCH (08:21)
[2022-05-12] MEDS: CHOLECALCIFEROL 1,000 UNIT TABLET (VIT D3) PO SCH (08:21)
[2022-05-12] MEDS: SPIRONOLACTONE 25 MG TABLET PO SCH (08:21)
[2022-05-12] MEDS: ESCITALOPRAM OXALATE (10 MG) 10 MG TABLET PO SCH (08:21)
[2022-05-12] MEDS: FUROSEMIDE 20 MG TABLET PO SCH (08:22)
[2022-05-12] MEDS: OXCARBAZEPINE 150 MG TABLET PO SCH (08:22)
== END 2022-05-12 12:59 | DRG 885 ==
LOC: ER 20:48 → GPS 04-29 01:15
PROVIDERS: ADMIT Psychiatry & Neurology Psychiatry; ATTEND Nurse Practitioner Family
DX: F25.1 Schizoaffective disorder, depressive type (principal); F03.94 Unspecified dementia, unspecified severity, with anxiety; F03.92 Unspecified dementia, unspecified severity, with psychotic disturbance; F03.93 Unspecified dementia, unspecified severity, with mood disturbance; E78.5 Hyperlipidemia, unspecified; I10 Essential (primary) hypertension; I69.398 Other sequelae of cerebral infarction; Z88.1 Allergy status to other antibiotic agents; Z88.2 Allergy status to sulfonamides; Z79.899 Other long term (current) drug therapy; Z79.82 Long term (current) use of aspirin; Z73.6 Limitation of activities due to disability; F29 Unspecified psychosis not due to a substance or known physiological condition; H25.011 Cortical age-related cataract, right eye
CPT/HCPCS: 36415; 80048-TC; 80061-TC; 80076-TC; 81001; 82565-TC; 82962-TC; 85025-TC; 97112-TC; 97116-TC; 97530-TC; C9803; G0480

== ENCOUNTER 2022-11-09 19:36 | Inpatient (IN) | payer MEDICARE, OTHER ==
[~2022-11-09] VITALS: Ht 175.3 cm; Wt 72.6 kg
[~2022-11-09 19:36] MED LIST changes: -MINE7OIN RIGHTEYE; +QUET50TA PO
[2022-11-09 21:12] LABS: BASOPHILS % (AUTO) 0.6 % (0.0-2.0); EOSINOPHILS # (AUTO) 0.2 K/uL (0.0-0.7); EOSINOPHILS % (AUTO) 3.4 % (0.0-6.0); HEMATOCRIT 34 % (39-51); HEMOGLOBIN 11.3 g/dL (13.5-17.5); LYMPHOCYTES % (AUTO) 15.1 % (20.0-44.0); MEAN CORPUSCULAR HEMOGLOBIN 30 PG (26.0-33.0); MEAN CORPUSCULAR HGB CONC 33 g/dl (31.0-36.0); MEAN CORPUSCULAR VOLUME 91 fL (80-96); MONOCYTES # (AUTO) 0.6 K/uL (0.1-1.30); MONOCYTES % (AUTO) 8.4 % (2.0-12.0); NEUTROPHILS % (AUTO) 72.5 % (43.0-81.0); PLATELET COUNT (AUTO) 353 K/uL (150-450); RED BLOOD CELL COUNT(AUTO) 3.73 MIL/uL (4.5-6.0); WHITE BLOOD COUNT (AUTO) 6.8 K/uL (4.3-11.0)
[2022-11-09 21:29] LABS: CARBON DIOXIDE 28 mmol/L (21-32); CHLORIDE 104 mmol/L (98-107); CREATININE 1.1 mg/dL (0.6-1.3); GLUCOSE 117 mg/dL (74-106); SODIUM SERUM 141 mmol/L (136-145); UREA NITROGEN, BLOOD 19 mg/dL (7-18)
[2022-11-09 21:32] LABS: APPEARANCE,URINE CLEAR (CLEAR); BILIRUBIN,URINE NEGATIVE (NEGATIVE); BLOOD, URINE NEGATIVE Ery/uL (NEGATIVE); COLOR,URINE YELLOW (YELLOW); KETONES,URINE NEGATIVE (NEGATIVE); LEUKOCYTE ESTERASE ,URINE NEGATIVE (NEGATIVE); NITRITE, URINE NEGATIVE (NEGATIVE); PROTEIN,URINE NEGATIVE (NEGATIVE); UGLUCOSE NEGATIVE (NEGATIVE); UROBILINOGEN,URINE 0.2 EU/dL (0.2)
[2022-11-09 21:36] LABS: ALANINE AMINOTRANSFERASE 33 U/L (12-78); ALBUMIN 3.3 g/dL (3.4-5.0); ALCOHOL, BLOOD < 3 mg/dL (0-10); ALKALINE PHOSPHATASE 132 U/L (46-116); ASPARTATE AMINOTRANSFERASE 25 U/L (15-37); BILIRUBIN,DIRECT 0.1 mg/dL (0.0-0.2); BILIRUBIN,TOTAL 0.2 mg/dL (0.2-1.0); TOTAL PROTEIN, SERUM 7.2 g/dL (6.4-8.2)
[2022-11-09 21:41] LABS: SALICYLATE < 2.3 mg/dL (2.8-20.0)
[2022-11-09 21:42] LABS: ACETAMINOPHEN 0 ug/ml (10-30)
[2022-11-09 21:54] LABS: AMPHETAMINE, URINE NEGATIVE (NEGATIVE); BARBITURATE, URINE NEGATIVE (NEGATIVE); BENZODIAZEPINE, URINE NEGATIVE (NEGATIVE); CANNABINOID, URINE NEGATIVE (NEGATIVE); COCCAINE, URINE NEGATIVE (NEGATIVE); OPIATE, URINE NEGATIVE (NEGATIVE); PHENCYCLIDINE SCREEN,URINE NEGATIVE (NEGATIVE)
[2022-11-10] MEDS ORDERED: ESCI10TA PO
[2022-11-10 00:30] VITALS: BP 132/92; TEMP 97.7; O2SAT 94
[2022-11-10 00:50] VITALS: BP 152/92; TEMP 97.7; O2SAT 94
[2022-11-10] MEDS ORDERED: ZOLPIDEM TARTRATE 5 MG TABLET PO PRN (01:30)
[2022-11-10] MEDS ORDERED: MAG HYDROX/AL HYDROX/SIMETH 30 ML UDC PO PRN (01:30)
[2022-11-10] MEDS ORDERED: ACETAMINOPHEN 325 MG TABLET PO PRN ×2 (01:30→11:30)
[2022-11-10] MEDS ORDERED: BLOOD SUGAR DIAGNOSTIC 1 EACH STRIP IN ONE (01:30)
[2022-11-10] MEDS ORDERED: MAGNESIUM HYDROXIDE 30 ML UDC PO PRN ×2 (01:30→11:30)
[2022-11-10 07:41] LABS: CREATININE 0.9 mg/dL (0.6-1.3)
[2022-11-10 08:00] VITALS: BP 164/97; TEMP 98.6; O2SAT 97
[2022-11-10] MEDS ORDERED: BISACODYL SUPP (10 MG) 10 MG/SUPP.RECT SUPP.RECT RC PRN (11:30)
[2022-11-10] MEDS ORDERED: NA PHOS,M-B/NA PHOS,DI-BA 1 EA ENEMA RC PRN (11:30)
[2022-11-10] MEDS: OXCARBAZEPINE 150 MG TABLET PO SCH ×2 (11:40→16:42)
[2022-11-10] MEDS: SPIRONOLACTONE 25 MG TABLET PO SCH ×2 (12:15→16:42)
[2022-11-10 16:00] VITALS: BP 171/90; TEMP 98; O2SAT 96
[2022-11-10] MEDS: OLANZAPINE 2.5 MG TABLET PO SCH (16:42)
[2022-11-10 20:00] VITALS: BP 158/91; TEMP 98.3; O2SAT 96
[2022-11-10] MEDS: ATORVASTATIN 40 MG TABLET PO SCH (21:20)
[2022-11-11 08:00] VITALS: BP 163/99; TEMP 97.9; O2SAT 94
[2022-11-11] MEDS: OXCARBAZEPINE 150 MG TABLET PO SCH ×2 (08:50→17:09)
[2022-11-11] MEDS: OLANZAPINE 2.5 MG TABLET PO SCH ×2 (08:50→17:08)
[2022-11-11] MEDS: ASPIRIN 81 MG TAB.CHEW PO SCH (08:50)
[2022-11-11] MEDS: SPIRONOLACTONE 25 MG TABLET PO SCH ×3 (08:50→17:08)
[2022-11-11] MEDS: FUROSEMIDE 20 MG TABLET PO SCH (08:50)
[2022-11-11] MEDS: ESCITALOPRAM OXALATE (10 MG) 10 MG TABLET PO SCH (08:50)
[2022-11-11] MEDS: AMLODIPINE BESYLATE 5 MG TABLET PO SCH (08:51)
[2022-11-11 16:00] VITALS: BP 151/79; TEMP 97.8; O2SAT 94
[2022-11-11 20:00] VITALS: BP 154/80; TEMP 97.8; O2SAT 95
[2022-11-11] MEDS: ATORVASTATIN 40 MG TABLET PO SCH (21:33)
[2022-11-12 08:00] VITALS: BP 149/96; TEMP 97.6; O2SAT 97
[2022-11-12] MEDS: OLANZAPINE 2.5 MG TABLET PO SCH ×2 (08:15→17:09)
[2022-11-12] MEDS: ESCITALOPRAM OXALATE (10 MG) 10 MG TABLET PO SCH (08:15)
[2022-11-12] MEDS: FUROSEMIDE 20 MG TABLET PO SCH (08:15)
[2022-11-12] MEDS: OXCARBAZEPINE 150 MG TABLET PO SCH ×2 (08:15→17:09)
[2022-11-12] MEDS: ASPIRIN 81 MG TAB.CHEW PO SCH (08:15)
[2022-11-12] MEDS: SPIRONOLACTONE 25 MG TABLET PO SCH ×3 (08:15→17:09)
[2022-11-12] MEDS: AMLODIPINE BESYLATE 5 MG TABLET PO SCH (08:16)
[2022-11-12 16:00] VITALS: BP 142/77; TEMP 98; O2SAT 97
[2022-11-12] MEDS: ATORVASTATIN 40 MG TABLET PO SCH (21:32)
[2022-11-13 08:00] VITALS: BP 153/94; TEMP 97.8; O2SAT 97
[2022-11-13] MEDS: OLANZAPINE 2.5 MG TABLET PO SCH ×2 (08:34→16:51)
[2022-11-13] MEDS: FUROSEMIDE 20 MG TABLET PO SCH (08:34)
[2022-11-13] MEDS: ESCITALOPRAM OXALATE (10 MG) 10 MG TABLET PO SCH (08:34)
[2022-11-13] MEDS: OXCARBAZEPINE 150 MG TABLET PO SCH ×2 (08:34→16:52)
[2022-11-13] MEDS: SPIRONOLACTONE 25 MG TABLET PO SCH ×3 (08:34→16:51)
[2022-11-13] MEDS: ASPIRIN 81 MG TAB.CHEW PO SCH (08:34)
[2022-11-13] MEDS: AMLODIPINE BESYLATE 5 MG TABLET PO SCH (08:35)
[2022-11-13 16:00] VITALS: BP 138/78; TEMP 98.1; O2SAT 93
[2022-11-13 20:00] VITALS: BP 130/69; TEMP 97.6; O2SAT 97
[2022-11-13] MEDS: ATORVASTATIN 40 MG TABLET PO SCH (21:36)
[2022-11-14 08:00] VITALS: BP 160/92; TEMP 97.6; O2SAT 98
[2022-11-14] MEDS: OLANZAPINE 2.5 MG TABLET PO SCH ×2 (09:42→16:25)
[2022-11-14] MEDS: AMLODIPINE BESYLATE 5 MG TABLET PO SCH (09:42)
[2022-11-14] MEDS: SPIRONOLACTONE 25 MG TABLET PO SCH ×3 (09:43→16:25)
[2022-11-14] MEDS: ESCITALOPRAM OXALATE (10 MG) 10 MG TABLET PO SCH (09:43)
[2022-11-14] MEDS: ASPIRIN 81 MG TAB.CHEW PO SCH (09:43)
[2022-11-14] MEDS: OXCARBAZEPINE 150 MG TABLET PO SCH ×2 (09:43→16:26)
[2022-11-14] MEDS: FUROSEMIDE 20 MG TABLET PO SCH (09:43)
[2022-11-14 16:00] VITALS: BP 138/80; TEMP 97.6; O2SAT 95
[2022-11-14] MEDS: LORAZEPAM 0.5 MG TABLET PO PRN (21:08)
[2022-11-14] MEDS: ATORVASTATIN 40 MG TABLET PO SCH (21:08)
[2022-11-14 21:15] VITALS: BP 160/89; TEMP 97.9; O2SAT 96
[2022-11-15 08:00] VITALS: BP 144/76; TEMP 97.7; O2SAT 97
[2022-11-15] MEDS: OLANZAPINE 2.5 MG TABLET PO SCH ×2 (08:49→17:07)
[2022-11-15] MEDS: ESCITALOPRAM OXALATE (10 MG) 10 MG TABLET PO SCH (08:49)
[2022-11-15] MEDS: SPIRONOLACTONE 25 MG TABLET PO SCH ×3 (08:49→17:07)
[2022-11-15] MEDS: FUROSEMIDE 20 MG TABLET PO SCH (08:49)
[2022-11-15] MEDS: ASPIRIN 81 MG TAB.CHEW PO SCH (08:49)
[2022-11-15] MEDS: OXCARBAZEPINE 150 MG TABLET PO SCH ×2 (08:49→17:07)
[2022-11-15] MEDS: AMLODIPINE BESYLATE 5 MG TABLET PO SCH (08:50)
[2022-11-15 16:00] VITALS: BP 115/66; TEMP 97.7; O2SAT 94
[2022-11-15 20:00] VITALS: BP 151/65; TEMP 98; O2SAT 98
[2022-11-15] MEDS: ATORVASTATIN 40 MG TABLET PO SCH (21:03)
[2022-11-15] MEDS: LORAZEPAM 0.5 MG TABLET PO PRN (21:03)
[2022-11-16 08:00] VITALS: BP 156/96; TEMP 97.7; O2SAT 99
[2022-11-16] MEDS: FUROSEMIDE 20 MG TABLET PO SCH (08:15)
[2022-11-16] MEDS: ESCITALOPRAM OXALATE (10 MG) 10 MG TABLET PO SCH (08:15)
[2022-11-16] MEDS: SPIRONOLACTONE 25 MG TABLET PO SCH ×3 (08:15→16:53)
[2022-11-16] MEDS: AMLODIPINE BESYLATE 5 MG TABLET PO SCH (08:15)
[2022-11-16] MEDS: OLANZAPINE 2.5 MG TABLET PO SCH ×2 (08:15→16:53)
[2022-11-16] MEDS: ASPIRIN 81 MG TAB.CHEW PO SCH (08:15)
[2022-11-16] MEDS: OXCARBAZEPINE 150 MG TABLET PO SCH ×2 (08:16→16:53)
[2022-11-16 16:00] VITALS: BP 130/80; TEMP 98.6; O2SAT 96
[2022-11-16 20:32] VITALS: BP 145/75; TEMP 98; O2SAT 94
[2022-11-16] MEDS: ATORVASTATIN 40 MG TABLET PO SCH (21:22)
[2022-11-17 08:00] VITALS: BP 132/83; TEMP 97.9; O2SAT 97
[2022-11-17] MEDS: ASPIRIN 81 MG TAB.CHEW PO SCH (08:45)
[2022-11-17] MEDS: OLANZAPINE 2.5 MG TABLET PO SCH ×2 (08:45→17:44)
[2022-11-17] MEDS: FUROSEMIDE 20 MG TABLET PO SCH (08:45)
[2022-11-17] MEDS: OXCARBAZEPINE 150 MG TABLET PO SCH ×2 (08:45→17:45)
[2022-11-17] MEDS: ESCITALOPRAM OXALATE (10 MG) 10 MG TABLET PO SCH (08:45)
[2022-11-17] MEDS: SPIRONOLACTONE 25 MG TABLET PO SCH ×3 (08:45→17:44)
[2022-11-17] MEDS: AMLODIPINE BESYLATE 5 MG TABLET PO SCH (08:46)
[2022-11-17 16:00] VITALS: BP 145/81; TEMP 98.6; O2SAT 98
[2022-11-17 20:17] VITALS: BP 137/84; TEMP 98.3; O2SAT 95
[2022-11-17] MEDS: ATORVASTATIN 40 MG TABLET PO SCH (21:06)
[2022-11-18 08:00] VITALS: BP 163/86; TEMP 97.8; O2SAT 95
[2022-11-18] MEDS: AMLODIPINE BESYLATE 5 MG TABLET PO SCH (08:17)
[2022-11-18] MEDS: OXCARBAZEPINE 150 MG TABLET PO SCH ×2 (08:17→16:09)
[2022-11-18] MEDS: ESCITALOPRAM OXALATE (10 MG) 10 MG TABLET PO SCH (08:17)
[2022-11-18] MEDS: SPIRONOLACTONE 25 MG TABLET PO SCH ×3 (08:18→16:09)
[2022-11-18] MEDS: ASPIRIN 81 MG TAB.CHEW PO SCH (08:18)
[2022-11-18] MEDS: FUROSEMIDE 20 MG TABLET PO SCH (08:18)
[2022-11-18] MEDS: OLANZAPINE 2.5 MG TABLET PO SCH ×2 (08:18→16:09)
[2022-11-18 09:31] VITALS: BP 149/82
[2022-11-18] MEDS ORDERED: AMLODIPINE BESYLATE 5 MG TABLET PO ONE (11:00)
[2022-11-18 16:00] VITALS: BP 141/77; TEMP 97.6; O2SAT 99
[2022-11-18 20:00] VITALS: BP 158/81; TEMP 98.3; O2SAT 97
[2022-11-18] MEDS: ATORVASTATIN 40 MG TABLET PO SCH (21:18)
[2022-11-19 08:00] VITALS: BP 156/86; TEMP 97.9; O2SAT 98
[2022-11-19] MEDS: AMLODIPINE BESYLATE 10 MG TABLET PO SCH (08:08)
[2022-11-19] MEDS: ASPIRIN 81 MG TAB.CHEW PO SCH (08:08)
[2022-11-19] MEDS: SPIRONOLACTONE 25 MG TABLET PO SCH ×3 (08:09→16:20)
[2022-11-19] MEDS: FUROSEMIDE 20 MG TABLET PO SCH (08:09)
[2022-11-19] MEDS: OLANZAPINE 2.5 MG TABLET PO SCH ×2 (08:09→16:22)
[2022-11-19] MEDS: ESCITALOPRAM OXALATE (10 MG) 10 MG TABLET PO SCH (08:09)
[2022-11-19] MEDS: OXCARBAZEPINE 150 MG TABLET PO SCH ×2 (08:09→16:22)
[2022-11-19] MEDS: LOSARTAN POTASSIUM 25 MG TABLET PO SCH (11:08)
[2022-11-19 16:00] VITALS: BP 118/70; TEMP 98.2; O2SAT 94
[2022-11-19 20:00] VITALS: BP 109/56; TEMP 98.7; O2SAT 98
[2022-11-19] MEDS: ATORVASTATIN 40 MG TABLET PO SCH (21:06)
[2022-11-20 08:00] VITALS: BP 131/79; TEMP 97.6; O2SAT 96
[2022-11-20] MEDS: ESCITALOPRAM OXALATE (10 MG) 10 MG TABLET PO SCH (08:08)
[2022-11-20] MEDS: ASPIRIN 81 MG TAB.CHEW PO SCH (08:08)
[2022-11-20] MEDS: OXCARBAZEPINE 150 MG TABLET PO SCH ×2 (08:08→16:07)
[2022-11-20] MEDS: FUROSEMIDE 20 MG TABLET PO SCH (08:08)
[2022-11-20] MEDS: AMLODIPINE BESYLATE 10 MG TABLET PO SCH (08:08)
[2022-11-20] MEDS: SPIRONOLACTONE 25 MG TABLET PO SCH ×3 (08:08→16:06)
[2022-11-20] MEDS: OLANZAPINE 2.5 MG TABLET PO SCH ×2 (08:08→16:07)
[2022-11-20] MEDS: LOSARTAN POTASSIUM 25 MG TABLET PO SCH (08:09)
[2022-11-20] MEDS: TOBRAMYCIN OPHTH 5ML 5 ML BOTTLE RIGHTEYE SCH ×2 (09:30→11:30)
[2022-11-20] MEDS: TOBRAMYCIN/DEXAMETH OPHTH DORPS 2.5 ML BOTTLE RIGHTEYE SCH ×3 (13:15→20:05)
[2022-11-20 16:00] VITALS: BP 113/64; TEMP 98.1; O2SAT 95
[2022-11-20] MEDS: ATORVASTATIN 40 MG TABLET PO SCH (21:09)
[2022-11-20 21:37] VITALS: BP 139/80; TEMP 98.1; O2SAT 96
[2022-11-21] MEDS: TOBRAMYCIN/DEXAMETH OPHTH DORPS 2.5 ML BOTTLE RIGHTEYE SCH ×4 (07:44→20:02)
[2022-11-21 08:00] VITALS: BP 139/100; TEMP 97.7; O2SAT 99
[2022-11-21] MEDS: ASPIRIN 81 MG TAB.CHEW PO SCH (08:52)
[2022-11-21] MEDS: ESCITALOPRAM OXALATE (10 MG) 10 MG TABLET PO SCH (08:52)
[2022-11-21] MEDS: LOSARTAN POTASSIUM 25 MG TABLET PO SCH (08:52)
[2022-11-21] MEDS: OLANZAPINE 2.5 MG TABLET PO SCH ×2 (08:52→16:07)
[2022-11-21] MEDS: SPIRONOLACTONE 25 MG TABLET PO SCH ×3 (08:52→16:07)
[2022-11-21] MEDS: FUROSEMIDE 20 MG TABLET PO SCH (08:52)
[2022-11-21] MEDS: OXCARBAZEPINE 150 MG TABLET PO SCH ×2 (08:52→16:07)
[2022-11-21] MEDS: AMLODIPINE BESYLATE 10 MG TABLET PO SCH (08:53)
[2022-11-21 16:00] VITALS: BP 107/68; TEMP 98.1; O2SAT 94
[2022-11-21 20:21] VITALS: BP 114/65; TEMP 97.6; O2SAT 94
[2022-11-21] MEDS: ATORVASTATIN 40 MG TABLET PO SCH (21:01)
[2022-11-22] MEDS: TOBRAMYCIN/DEXAMETH OPHTH DORPS 2.5 ML BOTTLE RIGHTEYE SCH ×4 (07:58→19:41)
[2022-11-22 08:00] VITALS: BP 141/93; TEMP 97.8; O2SAT 97
[2022-11-22] MEDS: OLANZAPINE 2.5 MG TABLET PO SCH ×2 (08:00→16:57)
[2022-11-22] MEDS: ASPIRIN 81 MG TAB.CHEW PO SCH (08:00)
[2022-11-22] MEDS: OXCARBAZEPINE 150 MG TABLET PO SCH ×2 (08:00→16:57)
[2022-11-22] MEDS: FUROSEMIDE 20 MG TABLET PO SCH (08:00)
[2022-11-22] MEDS: SPIRONOLACTONE 25 MG TABLET PO SCH ×3 (08:04→16:57)
[2022-11-22] MEDS: AMLODIPINE BESYLATE 10 MG TABLET PO SCH (08:04)
[2022-11-22] MEDS: LOSARTAN POTASSIUM 25 MG TABLET PO SCH (08:04)
[2022-11-22] MEDS: ESCITALOPRAM OXALATE (10 MG) 10 MG TABLET PO SCH (08:04)
[2022-11-22 16:00] VITALS: BP 112/64; TEMP 97.5; O2SAT 93
[2022-11-22 20:31] VITALS: BP 114/72; TEMP 97.4; O2SAT 96
[2022-11-22] MEDS: ATORVASTATIN 40 MG TABLET PO SCH (21:08)
[2022-11-23 08:00] VITALS: BP 151/93; TEMP 97.5; O2SAT 96
[2022-11-23] MEDS: ASPIRIN 81 MG TAB.CHEW PO SCH (08:20)
[2022-11-23] MEDS: FUROSEMIDE 20 MG TABLET PO SCH (08:20)
[2022-11-23] MEDS: OXCARBAZEPINE 150 MG TABLET PO SCH (08:20)
[2022-11-23] MEDS: LOSARTAN POTASSIUM 25 MG TABLET PO SCH (08:21)
[2022-11-23] MEDS: OLANZAPINE 2.5 MG TABLET PO SCH (08:21)
[2022-11-23] MEDS: SPIRONOLACTONE 25 MG TABLET PO SCH ×2 (08:21→12:24)
[2022-11-23 08:22] VITALS: BP 151/93
[2022-11-23] MEDS: ESCITALOPRAM OXALATE (10 MG) 10 MG TABLET PO SCH (08:22)
[2022-11-23] MEDS: AMLODIPINE BESYLATE 10 MG TABLET PO SCH (08:22)
[2022-11-23] MEDS: TOBRAMYCIN/DEXAMETH OPHTH DORPS 2.5 ML BOTTLE RIGHTEYE SCH ×2 (08:25→12:15)
== END 2022-11-23 13:45 | DRG 885 ==
LOC: ER 19:37 → GPS 23:44
PROVIDERS: ADMIT Psychiatry & Neurology Psychiatry
DX: F25.1 Schizoaffective disorder, depressive type (principal); I69.351 Hemiplegia and hemiparesis following cerebral infarction affecting right dominant side; F03.93 Unspecified dementia, unspecified severity, with mood disturbance; F03.94 Unspecified dementia, unspecified severity, with anxiety; F29 Unspecified psychosis not due to a substance or known physiological condition; F32.9 Major depressive disorder, single episode, unspecified; F41.9 Anxiety disorder, unspecified; G40.909 Epilepsy, unspecified, not intractable, without status epilepticus; I10 Essential (primary) hypertension; Z85.9 Personal history of malignant neoplasm, unspecified; E78.5 Hyperlipidemia, unspecified; H10.9 Unspecified conjunctivitis; Z88.1 Allergy status to other antibiotic agents; Z88.5 Allergy status to narcotic agent; Z79.82 Long term (current) use of aspirin; Z79.899 Other long term (current) drug therapy; H25.011 Cortical age-related cataract, right eye; D63.8 Anemia in other chronic diseases classified elsewhere; Z73.6 Limitation of activities due to disability; Z86.59 Personal history of other mental and behavioral disorders
CPT/HCPCS: 36415; 80048-TC; 80061-TC; 80076-TC; 82565-TC; 82962-TC; 85025-TC; 87081-TC; 97110-TC; 97116-TC; 97530-TC; C9803; G0480